=== PATIENT | female | born 1965 | race Two or more races ===

== ENCOUNTER 2018-11-10 18:31 | Emergency (ER) | payer SELFPAY ==
[~2018-11-10] VITALS: Ht 160 cm; Wt 77.1 kg
[2018-11-10] MEDS ORDERED: IV NORMAL SALINE 1000ML BAG 1,000 ML IV SCH (19:03)
--- NOTE | 2018-11-10 19:10 | PHYS DOC ---
Adult General Chief Complaint Chief Complaint: ABDOMINAL PAIN HPI HPI Patient is a 53-year-old female who presents with complaint of upper abdominal pain that started yesterday at about 4:00 in the morning. Patient indicates that she has had some vomiting as well as loose stools since that time. She rates pain currently as 6 out of 10 but states that sometimes the pain gets very severe and then radiates around her belly and then up into her chest into her back. She denies any cardiac disease. She describes the pain as just like a deep pain and tightness. Patient states that walking worsens the symptoms a little bit but is not able to identify anything else that worsens or improves her pain. She does admit to a poor appetite since onset of symptoms. Review of Systems Review of Systems Constitutional: Denies fever or chills [] Respiratory: Denies cough or shortness of breath [] Cardiovascular: No additional information not addressed in HPI [] GI: Complains of abdominal pain with nausea, vomiting and diarrhea [] Musculoskeletal: Complains of back pain [] All other systems were reviewed and found to be within normal limits, except as documented in this note. Current Medications Current Medications Current Medications Medications (Trade) Dose Ordered Sig/Rishabh Start Time Stop Time Status Last Admin Dose Admin Hydromorphone HCl (Dilaudid) 0.5 mg PRN Q15MIN PRN 11/10/18 19:15 11/11/18 19:14 11/10/18 19:23 0.5 MG Info (CONTRAST GIVEN -- Rx MONITORING) 1 each PRN DAILY PRN 11/10/18 20:30 11/12/18 20:29 Iohexol (Omnipaque 300 Mg/ml) 75 ml 1X ONCE 11/10/18 20:30 11/10/18 20:31 DC 11/10/18 20:32 75 ML Ondansetron HCl (Zofran) 4 mg 1X ONCE 11/10/18 19:15 11/10/18 19:16 DC 11/10/18 19:23 4 MG Pantoprazole Sodium (PROTONIX VIAL for IV PUSH) 40 mg 1X ONCE 11/10/18 19:15 11/10/18 19:16 DC 11/10/18 19:22 40 MG Potassium Chloride/Water 100 ml @ 100 mls/hr 1X STAT 11/10/18 19:39 11/10/18 20:38 DC 11/10/18 19:51 100 MLS/HR Sodium Chloride 1,000 ml @ 1,000 mls/hr Q1H 11/10/18 19:03 11/10/18 20:02 DC 11/10/18 19:23 1,000 MLS/HR Allergies Allergies Allergies Coded Allergies Type Severity Reaction Last Updated Verified No Known Drug Allergies 11/10/18 No Physical Exam Physical Exam Constitutional: Well developed, well nourished, no acute distress, non-toxic appearance. [] HENT: Normocephalic, atraumatic, bilateral external ears normal, oropharynx moist, no oral exudates, nose normal. [] Eyes: PERRLA, EOMI, conjunctiva normal, no discharge. [] Neck: Normal range of motion, no tenderness, supple, no stridor. [] Cardiovascular: Regular rate and rhythm[] Lungs & Thorax: Bilateral breath sounds clear to auscultation [] Abdomen: Bowel sounds normal, soft, with moderate tenderness to palpation throughout the upper abdomen. [] Skin: Warm, dry, no erythema, no rash. [] Extremities: No tenderness, no cyanosis, no clubbing, ROM intact, no edema. [] Neurologic: Alert and oriented X 3, no focal deficits noted. [] Current Patient Data Vital Signs Vital Signs Date Time Temp Pulse Resp B/P (MAP) Pulse Ox O2 Delivery O2 Flow Rate FiO2 11/10/18 19:23 16 96 Room Air 11/10/18 18:35 98.3 90 141/80 (100) 98.3 Lab Values Laboratory Tests Test 11/10/18 18:35 11/10/18 19:10 Urine Collection Type Unknown Urine Color Yellow Urine Clarity Clear Urine pH 5.5 Urine Specific [place] 1.010 Urine Protein Negative mg/dL (NEG-TRACE) Urine Glucose (UA) Negative mg/dL (NEG) Urine Ketones (Stick) Negative mg/dL (NEG) Urine Blood Trace (NEG) Urine Nitrite Negative (NEG) Urine Bilirubin Negative (NEG) Urine Urobilinogen Dipstick 1.0 mg/dL (0.2 mg/dL) Urine Leukocyte Esterase Negative (NEG) Urine RBC Rare /HPF (0-2) Urine WBC Rare /HPF (0-4) Urine Squamous Epithelial Cells Mod /LPF Urine Bacteria Few /HPF (0-FEW) Urine Test Negative (NEG) White Blood Count 6.7 x10^3/uL (4.0-11.0) Red Blood Count 4.53 x10^6/uL (3.50-5.40) Hemoglobin 14.1 g/dL (12.0-15.5) Hematocrit 40.9 % (36.0-47.0) Mean Corpuscular Volume 90 fL (79-100) Mean Corpuscular Hemoglobin 31 pg (25-35) Mean Corpuscular Hemoglobin Concent 35 g/dL (31-37) Red Cell Distribution Width 13.4 % (11.5-14.5) Platelet Count 223 x10^3/uL (140-400) Neutrophils (%) (Auto) 65 % (31-73) Lymphocytes (%) (Auto) 28 % (24-48) Monocytes (%) (Auto) 6 % (0-9) Eosinophils (%) (Auto) 1 % (0-3) Basophils (%) (Auto) 0 % (0-3) Neutrophils # (Auto) 4.4 x10^3uL (1.8-7.7) Lymphocytes # (Auto) 1.8 x10^3/uL (1.0-4.8) Monocytes # (Auto) 0.4 x10^3/uL (0.0-1.1) Eosinophils # (Auto) 0.1 x10^3/uL (0.0-0.7) Basophils # (Auto) 0.0 x10^3/uL (0.0-0.2) Sodium Level 140 mmol/L (136-145) Potassium Level 2.9 mmol/L (3.5-5.1) *L Chloride Level 100 mmol/L (98-107) Carbon Dioxide Level 28 mmol/L (21-32) Anion Gap 12 (6-14) Blood Urea Nitrogen 12 mg/dL (7-20) Creatinine 0.6 mg/dL (0.6-1.0) Estimated GFR (Cockcroft-Gault) 104.2 BUN/Creatinine Ratio 20 (6-20) Glucose Level 117 mg/dL (70-99) H Calcium Level 8.9 mg/dL (8.5-10.1) Total Bilirubin 0.6 mg/dL (0.2-1.0) Aspartate Amino Transferase (AST) 119 U/L (15-37) H Alanine Aminotransferase (ALT) 173 U/L (14-59) H Alkaline Phosphatase 145 U/L (46-116) H Troponin I Quantitative < 0.017 ng/mL (0.000-0.055) Total Protein 8.3 g/dL (6.4-8.2) H Albumin 4.0 g/dL (3.4-5.0) Albumin/Globulin Ratio 0.9 (1.0-1.7) L Lipase 129 U/L (73-393) Laboratory Tests 11/10/18 19:10 Laboratory Tests 11/10/18 19:10 EKG EKG [] Interpretation Time: EKG demonstrates normal sinus rhythm with rate of 90. Radiology/Procedures Radiology/Procedures [] Impressions: PROCEDURE: CT ABD PELV W/ IV CONTRST ONLY PQRS Compliance statement: One or more of the following individualized dose reduction techniques were utilized for this examination: 1. Automated exposure control. 2. Adjustment of the mA and/or kV according to patient size. 3. Use of iterative reconstruction technique. Indication:epigastric pain, diarrhea, no priors, [id number] 75ml TECHNIQUE: CT abdomen and pelvis with IV contrast with multiplanar reformats. COMPARISON: None FINDINGS: Heart is normal in size. No pericardial or pleural effusion. Clear lung bases. Liver, spleen, pancreas, adrenals and kidneys within normal limits. No enlarged retroperitoneal or pelvic adenopathy. Status post cholecystectomy. No free pelvic fluid or ascites. Small fat-containing left inguinal hernia. No bowel obstruction. Uterus is present. Urinary bladder within normal limits. No pneumoperitoneum. No suspicious bony lesion. IMPRESSION: No acute findings. Electronically signed by: Dieudonne Durham DO (11/10/2018 8:42 PM) [facility] Course & Med Decision Making Course & Med Decision Making Pertinent Labs and Imaging studies reviewed. (See chart for details) [] Dragon Disclaimer Dragon Disclaimer This electronic medical record was generated, in whole or in part, using a voice recognition dictation system. Departure Departure Impression: Primary Impression: Gastroenteritis Additional Impression: Hypokalemia Disposition: HOME, SELF-CARE Condition: STABLE Referrals: VERONICA COY MD (PCP) Patient Instructions: Hypokalemia, Viral Gastroenteritis Scripts Diphenoxylate Hcl/Atropine (LOMOTIL TABLET) 1 Each Tablet 1 TAB PO TID PRN for DIARRHEA, #15 TAB Prov: IMANI GAMBINO Jr. DO 11/10/18 Tramadol Hcl (TRAMADOL HCL) 50 Mg Tablet 50 MG PO Q6HRS PRN for PAIN, #10 TAB Prov: IMANI GAMBINO Jr. DO 11/10/18 Ondansetron Hcl (ZOFRAN) 4 Mg Tablet 4 MG PO PRN TID PRN for NAUSEA, #15 nausea/vomiting Prov: IMANI GAMBINO Jr. DO 11/10/18 Problem Qualifiers IMANI GAMBINO Jr. DO Nov 10, 2018 19:10
[2018-11-10] MEDS ORDERED: PANTOPRAZOLE IV PUSH 40 MG VIAL. IVP ONE (19:15)
[2018-11-10] MEDS ORDERED: HYDROmorphone 2 MG/ML VIAL IV/SQ PRN (19:15)
[2018-11-10] MEDS ORDERED: ONDANSETRON PF 4 MG/2 ML VIAL. IV ONE (19:15)
[2018-11-10 19:18] LABS: BILIRUBIN,URINE NEGATIVE (NEG); CLARITY,URINE CLEAR; COLOR,URINE YELLOW; NITRITE,URINE NEGATIVE (NEG); PH,URINE 5.5; PROTEIN,URINE NEGATIVE (NEG-TRACE)
[2018-11-10 19:20] LABS: BASO % 0 % (0-3); EOS # 0.1 x10^3/uL (0.0-0.7); EOS % 1 % (0-3); HEMATOCRIT 40.9 % (36.0-47.0); HEMOGLOBIN 14.1 g/dL (12.0-15.5); LYMPH # 1.8 x10^3/uL (1.0-4.8); LYMPH % 28 % (24-48); MEAN CORPUSCULAR HEMOGLOBIN 31 pg (25-35); MEAN CORPUSCULAR HGB CONC 35 g/dL (31-37); MEAN CORPUSCULAR VOLUME 90 fL (79-100); MONO # 0.4 x10^3/uL (0.0-1.1); MONO % 6 % (0-9); NEUT # 4.4 x10^3uL (1.8-7.7); NEUT % 65 % (31-73); PLATELET COUNT 223 x10^3/uL (140-400); RED BLOOD COUNT 4.53 x10^6/uL (3.50-5.40); RED CELL DISTRIBUTION WIDTH 13.4 % (11.5-14.5); WHITE BLOOD COUNT 6.7 x10^3/uL (4.0-11.0)
[2018-11-10 19:24] LABS: BACTERIA,URINE FEW /HPF (0-FEW); RBC,URINE RARE /HPF (0-2); SQUAMOUS EPITHELIAL CELL,UR MOD /LPF; WBC,URINE RARE /HPF (0-4)
[2018-11-10 19:34] LABS: ALBUMIN/GLOBULIN RATIO 0.9 (1.0-1.7); CALCIUM 8.9 mg/dL (8.5-10.1); CREATININE 0.6 mg/dL (0.6-1.0); GFR 104.2; TOTAL BILIRUBIN 0.6 mg/dL (0.2-1.0); TOTAL PROTEIN 8.3 g/dL (6.4-8.2)
[2018-11-10 19:38] LABS: POTASSIUM 2.9 mmol/L (3.5-5.1)
[2018-11-10] MEDS ORDERED: POTASSIUM CHLORIDE 10MEQ 100 ML IV STA (19:39)
[2018-11-10 19:53] LABS: U PREG PATIENT NEGATIVE (NEG)
[2018-11-10] MEDS ORDERED: IOHEXOL 300 MG/ML 100ML VIAL. IV ONE (20:30)
[2018-11-10] MEDS ORDERED: CONTRAST GIVEN. MC PRN (20:30)
--- NOTE | 2018-11-10 20:45 | RAD ---
PQRS Compliance statement: One or more of the following individualized dose reduction techniques were utilized for this examination: 1. Automated exposure control. 2. Adjustment of the mA and/or kV according to patient size. 3. Use of iterative reconstruction technique. Indication:epigastric pain, diarrhea, no priors, [id number] 75ml TECHNIQUE: CT abdomen and pelvis with IV contrast with multiplanar reformats. COMPARISON: None FINDINGS: Heart is normal in size. No pericardial or pleural effusion. Clear lung bases. Liver, spleen, pancreas, adrenals and kidneys within normal limits. No enlarged retroperitoneal or pelvic adenopathy. Status post cholecystectomy. No free pelvic fluid or ascites. Small fat-containing left inguinal hernia. No bowel obstruction. Uterus is present. Urinary bladder within normal limits. No pneumoperitoneum. No suspicious bony lesion. IMPRESSION: No acute findings. Electronically signed by: Dieudonne Durham DO (11/10/2018 8:42 PM) [facility]
[2018-11-10] MEDS ORDERED: POTASSIUM CHLORIDE 20 MEQ TABLET.ER. PO ONE (21:45)
[2018-11-10] MEDS ORDERED: TRAM50TA PO (21:45)
[2018-11-10] MEDS ORDERED: ONDA4TAB7 PO (21:45)
[2018-11-10] MEDS ORDERED: DIPH1TAB PO (21:45)
[2018-11-10 22:00] VITALS: BP 113/66
--- NOTE | 2018-11-11 06:46 | EKG ---
[facility] [address] [place] [address] Test Date: 2018-11-10 Test Time: 18:45:13 Pat Name: ANGELA DEE Department: Room: Gender: F Clinical Pharmacy Coordinator: : [id number] Requested By: IMANI GAMBINO Order Number: [id number] Reading MD: Yannick Courtney MD Measurements Intervals [place] Rate: 90 P: 9 DE: 126 QRS: 32 QRSD: 86 T: 39 QT: 376 QTc: 464 Interpretive Statements SINUS RHYTHM Electronically Signed On 11-11-2018 9:59:05 CDT by Yannick Courtney MD
== END 2018-11-10 22:10 | disposition home or self-care (01) ==
LOC: ER 18:31
DX: K52.89 Other specified noninfective gastroenteritis and colitis (principal); E87.6 Hypokalemia
CPT/HCPCS: 36415; 74177; 80053; 81001; 81025; 83690; 84484; 85025; 93005; 96365; 96375; 99284; C9113; J1170; J2405; J3480; J7030; Q9967